=== PATIENT | female | born 1970 | race Caucasian/White ===

== ENCOUNTER 2017-01-04 07:01 | Day surgery (SDC) | payer OTHER ==
[~2017-01-04] VITALS: Ht 162.6 cm; Wt 78.9 kg
[~2017-01-04 07:01] MED LIST: ACID REDUCER150 MG PO; ADVIL200 MG PO; CIPROFLOXACIN500 M1 PO; GAS RELIEF 8080 MG PO; MIDOL COMPLETE1 EACH PO; MIDOL220 MG PO; MOTRIN400 MG PO; MOTRIN800 MG PO; NICOTINE PATCH1 EAC2 TD; VALIUM5 MG PO
[2017-01-04 07:47] VITALS: BP 140/64
[2017-01-04 10:00] VITALS: BP 120/69
[2017-01-04 11:05] VITALS: BP 104/58
== END 2017-01-04 11:05 | disposition home or self-care (01) ==
LOC: SDC 07:01
DX: N92.1 Excessive and frequent menstruation with irregular cycle (principal); N94.6 Dysmenorrhea, unspecified; K21.9 Gastro-esophageal reflux disease without esophagitis; F17.200 Nicotine dependence, unspecified, uncomplicated
CPT/HCPCS: 88305; J0131; J0690; J1100; J1170; J1885; J2250; J2405; J2765; J2795; J3010